=== PATIENT | female | born 2000 | race Caucasian/White ===

== ENCOUNTER 2024-06-10 14:54 | Inpatient (IN) | payer BC, MEDICAID, SELFPAY ==
[2024-06-10] VITALS (35 sets, daily range): BP systolic 117–141; BP diastolic 77–94; PULSE 85–114; TEMP 36.6–37.1; BMI 30.6
--- NOTE | 2024-06-10 14:54 | LDADM ---
This patient, Agata Aldrich, was admitted to Labor/Delivery/Recovery 105 on 06/10/24 at 14:54. Plans for labor, pain management and were discussed with patient. Patient/family oriented to hospital policies and general routines including ID bracelet, bed and alarms, visiting hours, pain management, procedures, bathroom and other care routines, personal items, smoking policy, room service/diet and guest tray routines, security routines, and visiting hours. Patient/Family are encouraged to report perceived risks to care and to ask questions if they do not understand what they are told or what they should do. See OBIX for further documentation.
--- NOTE | 2024-06-10 16:04 | PM.IMHP ---
H&P: HPI History of Present Illness Date/Time: 06/10/24 16:04 Chief Complaint: at 38.3 weeks gestation, IOL for preeclampsia, pt denies headache, visual changes and epigastric pain, has been uncomplicated. [facility] Family History Family History (Updated 06/03/24 @ 12:54 by Lashay Howard RN) Grandparent Alzheimer's dementia Grandparent Thyroid disease Lupus Social History Social History Substance use: never Spiritual care concerns: No Meds Home Medications and Allergies Home Medications Medication Instructions Recorded Confirmed Type prenat.vits,richelle,lfw-hfak-xuoqa 1 tablet 06/03/24 History Allergies Allergy/AdvReac Type Severity Reaction Status Date / Time No Known Allergies Allergy Unverified 02/24/11 23:38 Vital Signs Vital Signs - 24 hr 06/10/24 15:41 06/10/24 15:45 06/10/24 16:00 Pulse Rate 93 97 97 Blood Pressure 127/81 127/84 123/81 Exam Const: General: cooperative Resp: Effort & Inspection: normal respiratory effort Cardio: Rate: regular rate GI: Other: soft/gravid Skin: General skin exam: normal color Neuro: General: patient oriented x3 Extrem: General: normal to inspection Psych: Appearance: grossly normal Assessment and Plan Assessment and plan (1) Preeclampsia: Code(s): O14.90 - Unspecified pre-eclampsia, unspecified trimester Status: Acute Plan preeclampsia without severe features co-managing with dr. huggins proceed with IOL
[2024-06-10 16:22] LABS: Basophils Absolute Auto 0.1 K/mm3 (0.0-0.1); Basophils Percent Auto 0.7 % (0.2-1.2); Eosinophils Absolute Auto 0.1 K/mm3 (0-0.3); Eosinophils Percent Auto 0.6 % (0-4.4); Hematocrit 32.1 % (37.0-47.0); Hemoglobin 10.5 g/dL (12.0-15.0); Immature Granulocyte Absolute 0.08 K/mm3 (0.00-0.031); Immature Granulocyte Percent A 0.7 % (0-0.5); Lymphocytes Absolute Auto 1.62 K/mm3 (0.9-3.2); Lymphocytes Percent Auto 13.7 % (18.3-44.2); Mean Corpuscular HGB Conc 32.7 g/dl (32-36); Mean Corpuscular Hemoglobin 27.1 pg (26-34); Mean Corpuscular Volume 82.9 fl (80-100); Mean Platelet Volume 9.5 fl (7.4-10.4); Monocytes Absolute Auto 0.9 K/mm3 (0.1-0.6); Neutrophils Percent Auto 76.3 % (45.5-73.1); Platelet Count Result 351 k/mm3 (150-375); Red Blood Count 3.87 M/mm3 (4.2-5.4); Red Cell Distribution Width 12.9 % (11.5-14.5); White Blood Count 11.8 K/mm3 (4.5-10.0)
[2024-06-10] MEDS: LACTATED RINGERS 500 ML 999 ML IV CONT (16:49)
[2024-06-10 17:06] LABS: Rapid Plasma Reagin Non-Reactive (NonReactive)
[2024-06-10] MEDS: miSOPROStol 25 MCG TABLET 50 MCG BUCCAL ×2 (17:51→22:05)
--- NOTE | 2024-06-10 18:12 | WPDANESEPP ---
Anes - Eval Pre Procedure Procedure: Labor Epidural Date/Time: 06/10/24 18:12 Surgeon: Scar Preop Diagnosis: Labor Pain Pre Op Diagnosis: iol Patient Data Age: 23 Gender: F Height: 1.57 m Weight: 76 kg Last Vital Signs Temp 37.1 C 06/10/24 16:33 Pulse 98 06/10/24 18:00 BP 137/79 06/10/24 18:00 Allergies Allergy/AdvReac Type Severity Reaction Status Date / Time No Known Allergies Allergy Unverified 02/24/11 23:38 Home Medications Medication Instructions Recorded Confirmed Type prenat.vits,richelle,zdb-uiiv-gjahr 1 tablet PO DAILY 06/03/24 06/10/24 History Laboratory Tests 06/10/24 16:08 WBC 11.8 H K/mm3 (4.5-10.0) RBC 3.87 L M/mm3 (4.2-5.4) Hgb 10.5 L g/dL (12.0-15.0) Hct 32.1 L % (37.0-47.0) MCV 82.9 fl (80-100) MCH 27.1 pg (26-34) MCHC 32.7 g/dl (32-36) RDW 12.9 % (11.5-14.5) Plt Count 351 k/mm3 (150-375) MPV 9.5 fl (7.4-10.4) Immature Gran % (Auto) 0.7 H % (0-0.5) Neut % (Auto) 76.3 H % (45.5-73.1) Lymph % (Auto) 13.7 L % (18.3-44.2) [place] % (Auto) 8.0 % (2.6-8.5) Eos % (Auto) 0.6 % (0-4.4) Baso % (Auto) 0.7 % (0.2-1.2) Lymph # (Auto) 1.62 K/mm3 (0.9-3.2) [place] # (Auto) 0.9 H K/mm3 (0.1-0.6) Eos # (Auto) 0.1 K/mm3 (0-0.3) Baso # (Auto) 0.1 K/mm3 (0.0-0.1) Abs Immat Gran (auto) 0.08 H K/mm3 (0.00-0.031) Absolute Neuts (auto) 9.0 H K/mm3 (1.3-6.7) Absolute Nucleated RBC 0.000 K/mm3 (0.0-0.012) Nucleated RBC % 0.0 % (0.0-0.2) RPR Non-reactive (NonReactive) HIV 1&2 Ab/P24 Ag 4thGn Pending Blood Type A Positive Antibody Screen Negative : gestational age (LEE 06/21/24, ) Patient hx anesthesia problems: none Family hx anesthesia problems: none Results Review: All pre-operative results and documents have been reviewed as part of the pre-operative evaluation. [facility] Family History Family History Grandparent Alzheimer's dementia Grandparent Thyroid disease Lupus Social History Social History Smoking status: Never smoker Substance use: never Do You Feel Safe in your Home?: Yes Lack of Transportation: No Lack of Food: Never True Current Housing: I Have Housing Concerned About Future Housing: No Difficulty Paying Gas/Electric Bills: No Difficulty Paying for Meds: No Currently Unemployed: No Education: High School Diploma/GED Difficulty w/ Childcare or Family Care: No Spiritual care concerns: No Exam Day of Procedure 06/10/24 18:12 Patient weight: normal Heart: regular rate and rhythm Lungs: normal air movement Airway: Mallampati scale class II Neurological: alert and oriented
[2024-06-10 18:21] LABS: HIV 1/2 Ab P24 Ag Result Negative (Negative)
[2024-06-11] VITALS (288 sets, daily range): BP systolic 78–140; BP diastolic 50–100; PULSE 67–157; TEMP 36.4–37.1; O2SAT 81–100
[2024-06-11] MEDS: ONDANSETRON INJ 4 MG/2 ML VIAL IV PUSH ×2 (03:15→17:55)
[2024-06-11] MEDS: fentaNYL CITRATE INJ (*CRX) 100 MCG/2 ML VIAL IV PUSH (03:15)
[2024-06-11] MEDS: OXYTOCIN 30 UNITS/NS 500 ML 30 UNITS/500 ML BAG 6 UNITS IV CONT (07:16)
--- NOTE | 2024-06-11 08:12 | PM.OBPNLAB ---
Pain Control Date/time seen: 06/11/24 08:12 Comments: FHR category 1 SVE /-2 AROM moderate amount of clear, odorless fluid
[2024-06-11] MEDS: LACTATED RINGERS 1,000 ML 125 ML IV CONT ×2 (08:45→13:41)
[2024-06-11] MEDS: CALCIUM CARBONATE (TUMS) 500 MG (200 MG ELEMENTAL) 400 MG PO (16:37)
--- NOTE | 2024-06-11 22:13 | PM.OBPRVD ---
OB - Vaginal Delivery Note Procedure Delivery date: 06/11/24 Events: Preeclampsia w/o severe features Induction method: AROM, Per Misoprostol Protocol and Per Pitocin Protocol Delivery monitor: External FHT and Internal Uterine Route of delivery: Episiotomy description: None Laceration Description: None Specimen: No Quantitative Blood Loss (ml): 300 Anesthesia type: Epidural Disposition: Floor Complications: No immediate complications Baby Date of : 06/11/24 Time of : 21:57 Gestational Age by Date: 38 gender: Female presentation: vertex position: Left Occiput Anterior Placenta delivery description: Spontaneous Cord Vessel Description: 3 Vessels, Clamped/Cut and Delayed Cord Clamping Narrative: mother and baby skin to skin in stable condition
[2024-06-11] MEDS: OXYTOCIN 30 UNITS/NS 500 ML 30 UNITS/500 ML BAG 125 UNITS IV CONT (22:30)
[2024-06-12] VITALS (7 sets, daily range): BP systolic 116–133; BP diastolic 69–90; PULSE 92–113; RESP 16–18; TEMP 37.1–37.5; O2SAT 97–99
[2024-06-12] MEDS: WITCH HAZEL 40 PADS 1 PAD TOPICAL (00:24)
[2024-06-12] MEDS: BENZOCAINE 20% AER SPR (*SP) 56 GM CAN 1 SPRAY TOPICAL (00:24)
--- NOTE | 2024-06-12 00:53 | PC.NURSE ---
Patient transferred to post room #285 via ( W/C ). Support person present. Oriented to unit, room, information board, rooming in, admission packet and security measures. Patient verbalizes understanding.
[2024-06-12 05:45] LABS: Hematocrit 28.5 % (37.0-47.0); Hemoglobin 9.1 g/dL (12.0-15.0)
--- NOTE | 2024-06-12 06:52 | WPDANLDPN2 ---
Anes-Prog Note L&D Date/Time: 06/12/24 06:52 Comfortable throughout: labor and delivery Neuraxial method: epidural Epidural/Spinal procedure site: clean & non-tender Neuro status: Neuro function grossly intact. Cardiovascular status: normal Respiratory status: normal Airway patency: baseline Mental status: baseline Post-Op hydration status: normal Vital Signs: Last Vital Signs Temp 37.1 C 06/12/24 05:46 Pulse 98 06/12/24 05:46 Resp 18 06/12/24 05:46 BP 124/90 06/12/24 05:46 Pulse Ox 99 06/12/24 05:46 O2 Del Method Room Air 06/12/24 01:28 Pain score (VAS): 1 I/O: Intake & Output 06/11/24 06/11/24 06/12/24 15:59 23:59 07:59 Intake Total 616.7 Output Total 300 120 Balance 616.7 -300 -120 Post-procedural complaints: none Patient feedback: Patient satisfied with anesthetic care.
--- NOTE | 2024-06-12 07:14 | PM.OBPNVD ---
OB - PN: Subj Subjective Date/time seen: 06/12/24 07:14 Interval history: pp day 1 doing well denies complaints OB - PN: Obj Data Labs 06/12/24 05:33 Labs: Laboratory Results - last 24 hr 06/12/24 05:33 Hgb 9.1 L Hct 28.5 L OB - PN A/P Plan day: 1 Plan: routine care Time Spent With Patient Time: Total time spent is greater than 50% in coordination of care (as documented) at patient's floor/unit and/or counseling patient: Review of Systems Review of Systems: All systems reviewed & are unremarkable except as noted in HPI and below Exam Const: General: cooperative, healthy appearing and comfortable Resp: Effort & Inspection: normal respiratory effort Cardio: Rate: regular rate Neuro: General: patient oriented x3
[2024-06-12] MEDS: ACETAMINOPHEN 325 MG TABLET 650 MG PO (08:03)
[2024-06-12] MEDS: DOCUSATE SODIUM 100 MG CAPSULE PO ×2 (08:04→17:10)
[2024-06-12] MEDS: POLYSACCHARIDE IRON COMPLEX 150 MG CAPSULE PO ×2 (08:05→17:10)
[2024-06-13 07:46] VITALS: BP 118/76; PULSE 90; RESP 18; TEMP 36.6; O2SAT 100
[2024-06-13] MEDS: POLYSACCHARIDE IRON COMPLEX 150 MG CAPSULE PO (07:53)
[2024-06-13] MEDS: DOCUSATE SODIUM 100 MG CAPSULE PO (07:53)
[2024-06-13 08:00] VITALS: PULSE 90; RESP 18; O2SAT 100
--- NOTE | 2024-06-13 08:53 | PM.OBDSVD ---
DS: Admitting Diagnosis Discharge Date June 13, 2024 Admitting Diagnosis term DS: Discharge Diagnosis Discharge Diagnosis (1) Term delivered: Code(s): O80 - Encounter for full-term uncomplicated delivery Status: Acute OB - DS: Summary OB Procedures : None OB Procedures Intrapartum: Spontaneous Vag Delivery OB Procedures: : None Peripartum Data Laceration Description: None Episiotomy description: None Time Spent with Patient Time attestation: Total time spent providing and/or coordinating discharge services: Discharge Plan Discharge Discharging Clinician: Danny Bhakta Patient Disposition: Home, Self-Care Activity: pelvic rest Diet: regular Patient Instructions: Antibiotic Form Stand Alone Forms: General Discharge Information Follow-up/Referrals: Danny Bhakta MD [Physician] - Discharge Medications: Continued #2 Tablet 1 tablet PO DAILY Date of admission: 06/10/24 14:54 Primary Care Provider: Damian Dick Admitting Provider: Gianluca Abbott Attending physician on admission: Gianluca Abbott Condition: Stable
--- NOTE | 2024-06-13 13:51 | PC.NURSE ---
Patient viewed the discharge video Mother & Baby Care, The First Two Weeks . Patient was given the opportunity and encouraged to ask questions. Patient verbalized understanding of information shared and has been given the mother/baby guide for home reference.
[2024-06-14 09:36] VITALS: BP 129/88; PULSE 88; RESP 18; TEMP 36.7; O2SAT 100
== END 2024-06-13 13:25 | disposition home or self-care (01) | DRG 807 ==
LOC: ANHOB2 06-13 09:12 → ANHLDR 06-15 07:09 → ANHOB2 06-15 07:09
PROVIDERS: Advanced Practice Midwife; Admitting Provider Obstetrics & Gynecology; PCP Family Medicine; Visit Provider Obstetrics & Gynecology
DX: O14.94 Unspecified pre-eclampsia, complicating childbirth (principal); Z37.0 Single live birth; Z3A.38 38 weeks gestation of pregnancy; O13.4 Gestational [pregnancy-induced] hypertension without significant proteinuria, complicating childbirth; O71.4 Obstetric high vaginal laceration alone
CPT/HCPCS: 36415; 85014; 85018; 85025; 86592; 86703; 86850; 86900; 86901; A9270; G0432; J2405; J2590; J2795; J3010; J7120